=== PATIENT | female | born 1950 | race Caucasian/White ===

== ENCOUNTER 2024-09-20 05:44 | Emergency (ER) | payer OTHER ==
[~2024-09-20] VITALS: Ht 167.6 cm; Wt 92.3 kg
[2024-09-20] MEDS ORDERED: LEVO25TA5 PO (06:03)
[2024-09-20] MEDS ORDERED: OMEP40CA4 PO (06:03)
[2024-09-20] MEDS ORDERED: LOSA25TA13 PO (06:03)
[2024-09-20] MEDS ORDERED: ATOR40TA75 PO (06:03)
[2024-09-20] MEDS ORDERED: [UNRECOGNIZED DRUG - CODE] SC (06:03)
[2024-09-20] MEDS ORDERED: GLIP10TA PO (06:03)
[2024-09-20] MEDS ORDERED: CITA40TA7 PO (06:03)
[2024-09-20] MEDS ORDERED: IBUP-1022 PO (10:37)
[2024-09-20] MEDS: KETOROLAC 60MG 2ML VIAL IM ONE (10:40)
[2024-09-20 10:54] VITALS: BP 117/60; TEMP 98.5; O2SAT 94
== END 2024-09-20 11:16 | disposition home or self-care (01) ==
LOC: M ED 05:44
DX: S42.212A Unspecified displaced fracture of surgical neck of left humerus, initial encounter for closed fracture (principal); W08.XXXA Fall from other furniture, initial encounter; Y92.009 Unspecified place in unspecified non-institutional (private) residence as the place of occurrence of the external cause; Y93.89 Activity, other specified; Y99.9 Unspecified external cause status; E11.9 Type 2 diabetes mellitus without complications; I10 Essential (primary) hypertension; E03.9 Hypothyroidism, unspecified; E78.5 Hyperlipidemia, unspecified; K21.9 Gastro-esophageal reflux disease without esophagitis; Z79.4 Long term (current) use of insulin; Z79.899 Other long term (current) drug therapy; Z88.1 Allergy status to other antibiotic agents
CPT/HCPCS: 73030; 96372; 99284; J1885